=== PATIENT | female | born 1970 | race Caucasian/White ===

== ENCOUNTER 2021-01-19 23:16 | Inpatient (IN) | payer BC ==
[~2021-01-19] VITALS: Ht 157.5 cm; Wt 140.2 kg
[2021-01-19 23:52] LABS: HEMOGLOBIN 14.6 gm/dl (12.3-15.3); RED BLOOD COUNT 4.94 M/UL (4.00-5.10); WHITE BLOOD COUNT 15.4 K/UL (4.5-11.0)
[2021-01-20 00:15] LABS: BUN/CREATININE RATIO 17 (0-10)
[2021-01-20] MEDS ORDERED: CYCLOBENZAPRINE10 MG PO (03:15)
[2021-01-20] MEDS ORDERED: TENORMIN 50 MG50 MG PO (03:15)
[2021-01-20] MEDS ORDERED: POTASSIUM CHLO20 ME2 PO (03:15)
[2021-01-20] MEDS ORDERED: WARFARIN SODIUM4 MG PO (03:16)
[2021-01-20] MEDS ORDERED: GABAPENTIN300 MG PO (03:17)
[2021-01-20] MEDS ORDERED: FOLIC ACID 1 MG1 MG PO (03:18)
[2021-01-20] MEDS ORDERED: PROAIR HFA8.5 GM INH (03:47)
[2021-01-20 05:04] LABS: BORDETELLA PARAPERTUSSIS Not Detected (Not Detectd); BORDETELLA PERTUSSIS Not Detected (Not Detectd); CHLAMYDIA PNEUMONIAE Not Detected (Not Detectd); CORONAVIRUS HKU1 Not Detected (Not Detectd); CORONAVIRUS NL63 Not Detected (Not Detectd); CORONAVIRUS OC43 Not Detected (Not Detectd); CORONOAVIRUS 229E Not Detected (Not Detectd); HUMAN METAPNEUMOVIRUS Not Detected (Not Detectd); HUMAN RHINOVIRUS/ENTEROVIRUS Not Detected (Not Detectd); INFLUENZA A Not Detected (Not Detectd); INFLUENZA B Not Detected (Not Detectd); MYCOPLASMA PNEUMONIAE Not Detected (Not Detectd); PARAINFLUENZA VIRUS 1 Not Detected (Not Detectd); PARAINFLUENZA VIRUS 2 Not Detected (Not Detectd); PARAINFLUENZA VIRUS 4 Not Detected (Not Detectd); RESPIRATORY SYNCYTIAL VIRUS Not Detected (Not Detectd)
[2021-01-20 05:14] LABS: BUN/CREATININE RATIO 16 (0-10)
[2021-01-20 06:29] LABS: PARAINFLUENZA VIRUS 3 DETECTED (Not Detectd); SARS-CoV-2 NOT DETECTED (Not Detectd)
[2021-01-20 10:10] LABS: HEMOGLOBIN 14.5 gm/dl (12.3-15.3); RED BLOOD COUNT 4.9 M/UL (4.00-5.10); WHITE BLOOD COUNT 13.7 K/UL (4.5-11.0)
[2021-01-21 02:23] LABS: HEMOGLOBIN 13.9 gm/dl (12.3-15.3); RED BLOOD COUNT 4.71 M/UL (4.00-5.10); WHITE BLOOD COUNT 14.5 K/UL (4.5-11.0)
[2021-01-22 05:01] LABS: HEMOGLOBIN 13.8 gm/dl (12.3-15.3); RED BLOOD COUNT 4.66 M/UL (4.00-5.10); WHITE BLOOD COUNT 11.1 K/UL (4.5-11.0)
[2021-01-23 02:52] LABS: HEMOGLOBIN 14.5 gm/dl (12.3-15.3); RED BLOOD COUNT 4.96 M/UL (4.00-5.10); WHITE BLOOD COUNT 10.2 K/UL (4.5-11.0)
[2021-01-24 02:38] LABS: HEMOGLOBIN 14.8 gm/dl (12.3-15.3); WHITE BLOOD COUNT 10.9 K/UL (4.5-11.0)
[2021-01-24 12:15] LABS: ORGANISM ID Not indicated. (.); SPECIMEN SOURCE Urine (.)
[2021-01-24 14:15] LABS: STREPTOCOCCUS PNEUMONIAE AG Positive (Negative)
[2021-01-25 05:08] LABS: HEMOGLOBIN 15.5 gm/dl (12.3-15.3); RED BLOOD COUNT 5.34 M/UL (4.00-5.10); WHITE BLOOD COUNT 12.6 K/UL (4.5-11.0)
[2021-01-26 02:40] LABS: HEMOGLOBIN 14.9 gm/dl (12.3-15.3); RED BLOOD COUNT 5.09 M/UL (4.00-5.10)
[2021-01-26 02:42] LABS: WHITE BLOOD COUNT 8.5 K/UL (4.5-11.0)
[2021-01-26] MEDS ORDERED: LEVOFLOXACIN500 MG PO (11:48)
[2021-01-26] MEDS ORDERED: FUROSEMIDE40 MG PO (11:48)
== END 2021-01-26 17:33 | disposition home health service (06) | DRG 871 ==
LOC: ER1 23:16 → PROG CARE 01-20 01:22 → CDU 01-20 01:22 → PROG CARE 01-20 03:35
PROVIDERS: Emergency Medicine; Internal Medicine; Internal Medicine Infectious Disease; ADMIT Internal Medicine
PROC: B24BZZZ Ultrasonography of Heart with Aorta (ICD-10-PCS; principal; 2021-01-20)
PROC: 5A09457 Assistance with Respiratory Ventilation, 24-96 Consecutive Hours, Continuous Positive Airway Pressure (ICD-10-PCS; 2021-01-20)
DX: A41.9 Sepsis, unspecified organism (principal); J12.9 Viral pneumonia, unspecified; J96.22 Acute and chronic respiratory failure with hypercapnia; I50.33 Acute on chronic diastolic (congestive) heart failure; J96.21 Acute and chronic respiratory failure with hypoxia; E66.2 Morbid (severe) obesity with alveolar hypoventilation; Z68.43 Body mass index [BMI] 50.0-59.9, adult; D68.61 Antiphospholipid syndrome; N17.9 Acute kidney failure, unspecified; J44.0 Chronic obstructive pulmonary disease with (acute) lower respiratory infection; R65.20 Severe sepsis without septic shock; Z20.822 Contact with and (suspected) exposure to COVID-19; T38.0X5A Adverse effect of glucocorticoids and synthetic analogues, initial encounter; F17.210 Nicotine dependence, cigarettes, uncomplicated; R79.89 Other specified abnormal findings of blood chemistry; L89.302 Pressure ulcer of unspecified buttock, stage 2; E11.65 Type 2 diabetes mellitus with hyperglycemia; I11.0 Hypertensive heart disease with heart failure; Z82.49 Family history of ischemic heart disease and other diseases of the circulatory system; Z86.718 Personal history of other venous thrombosis and embolism; Z79.01 Long term (current) use of anticoagulants; Z79.899 Other long term (current) drug therapy
CPT/HCPCS: 0240U; 36415; 36600; 51702; 71045; 71250; 80048; 80053; 80202; 81001; 82550; 82553; 82803; 82962; 83605; 83690; 83880; 84484; 85025; 85027; 85379; 85610; 86140; 87040; 87070; 87081; 87205; 87278; 87633; 87899; 93005; 93308; 94640; 94660; 94664; 94760; 96374; 96375; 97162; 99285; J0456; J0692; J0696; J1940; J2920; J2930; J3370; J7030; J7070; U0002